=== PATIENT | female | born 2000 | race Hispanic/Latino ===

== ENCOUNTER 2022-12-06 10:43 | Day surgery (SDC) | payer OTHER, SELFPAY ==
[~2022-12-06] VITALS: Ht 162.6 cm; Wt 68.2 kg
[2022-12-06 12:16] LABS: BASO % 0.4 % (0.0-1.0); EOS # 0.2 10^3/uL (0.0-0.5); HEMATOCRIT 38.6 % (36.0-47.0); HEMOGLOBIN 12.3 g/dl (12.0-15.5); LYMPH % 20.1 % (24.0-44.0); MEAN CORPUSCULAR HEMOGLOBIN 26.7 pg (27.0-33.0); MEAN CORPUSCULAR HGB CONC 31.9 g/dl (32.0-36.5); MEAN CORPUSCULAR VOLUME 83.7 fl (80.0-96.0); MONO # 0.6 10^3/uL (0.0-0.8); NEUTROPHILS # 7.2 10^3/uL (1.5-8.5); PLATELET COUNT, AUTOMATED 365 10^3/uL (150-450); RED BLOOD COUNT 4.61 10^6/uL (4.00-5.40); WHITE BLOOD COUNT 10.2 10^3/uL (4.0-10.0)
[2022-12-06 12:40] LABS: BLOOD UREA NITROGEN 15 MG/DL (9-23); CALCIUM LEVEL 9.8 MG/DL (8.5-10.1); CARBON DIOXIDE LEVEL 27 MMOL/L (20-31); CHLORIDE LEVEL 103 MMOL/L (98-107); CREATININE FOR GFR 0.72 MG/DL (0.55-1.30); GLOMERULAR FILTRATION RATE > 60.0 (>60); GLUCOSE, FASTING 83 MG/DL (60-100); POTASSIUM SERUM 4.3 MMOL/L (3.5-5.1); SODIUM LEVEL 136 MMOL/L (136-145)
[2022-12-06 12:54] LABS: HCG, SERUM QUANTITATIVE 3355.3 MIU/ML (<4.2)
[2022-12-06] MEDS ORDERED: RHOGAM 300MCG (1500IU) INJ IM ONE (16:30)
[2022-12-06 16:35] LABS: GC DNA AMPLIFICATION NEGATIVE (NEGATIVE)
[2022-12-06] MEDS ORDERED: BUPIVACAINE HCL 0.25% 30ML VIAL As Ordered ONE (17:45)
[2022-12-06] MEDS ORDERED: propofoL 200 MG/20 ML VIAL As Ordered ONE (17:53)
[2022-12-06] MEDS ORDERED: LIDOCAINE 2% 100MG/5ML SDV (FOR ANES.) As Ordered ONE (17:53)
[2022-12-06] MEDS ORDERED: ROCURONIUM BROMIDE 50MG/5ML VIAL As Ordered ONE (17:53)
[2022-12-06] MEDS ORDERED: fentaNYL 250 MCG/5 ML INJECTION As Ordered ONE (17:55)
[2022-12-06] MEDS ORDERED: MIDAZOLAM INJ 2MG/2ML VIAL As Ordered ONE (17:56)
[2022-12-06] MEDS ORDERED: SCOPOLAMINE 1MG TRANSDERMAL PATCH TOP ONE (18:30)
[2022-12-06] MEDS ORDERED: ONDANSETRON 4MG 2ML VIAL As Ordered ONE (19:01)
[2022-12-06] MEDS ORDERED: ACETAMINOPHEN 1000MG 100ML IV BAG As Ordered ONE (19:01)
[2022-12-06] MEDS ORDERED: SUGAMMADEX SODIUM 500 MG/5 ML VIAL (BRIDION) As Ordered ONE (19:11)
[2022-12-06] MEDS ORDERED: KETOROLAC 60MG 2ML VIAL As Ordered ONE (19:30)
[2022-12-06] MEDS ORDERED: fentaNYL 100 MCG/2 ML INJECTION As Ordered ONE (19:47)
[2022-12-06] MEDS ORDERED: ONDANSETRON 4MG 2ML VIAL IV PRN (19:50)
[2022-12-06] MEDS ORDERED: oxyCODONE 5MG TAB PO PRN (19:50)
[2022-12-06] MEDS ORDERED: LR 1,000 ML IV SCH (19:50)
[2022-12-06] MEDS ORDERED: MORPHINE 2 MG/ML 1ML VIAL IV PRN (19:50)
[2022-12-06] MEDS ORDERED: fentaNYL 100 MCG/2 ML INJECTION IV PRN (19:50)
[2022-12-06 21:47] VITALS: BP 127/79
== END 2022-12-06 21:48 | disposition home or self-care (01) ==
LOC: M ED 10:43 → M SDC 17:22
PROVIDERS: ATTEND Obstetrics & Gynecology
DX: N83.11 Corpus luteum cyst of right ovary (principal); T83.39XA Other mechanical complication of intrauterine contraceptive device, initial encounter; Z88.0 Allergy status to penicillin; Z91.040 Latex allergy status
CPT/HCPCS: 49329; 76801; 76817; 80048; 81002; 84702; 85025; 86850; 86900; 86901; 87635; 87661; 87810; 87850; 93976; 96372; 99284; J0131; J1100; J1885; J2250; J2405; J2790; J3010; S0020

== ENCOUNTER → 2022-12-09 | Outpatient (CLI) | payer OTHER | LOC: M RAD 08:35 | PROVIDERS: ATTEND Obstetrics & Gynecology | DX: Z36.89 Encounter for other specified antenatal screening (principal) ==

== ENCOUNTER 2023-07-19 13:10 | Inpatient (IN) | payer OTHER ==
[2023-07-19] VITALS (7 sets, daily range): BP systolic 116–123; BP diastolic 60–71; TEMP 98.6; O2SAT 95–97
[~2023-07-19] VITALS: Ht 157.5 cm; Wt 89.2 kg
[2023-07-19] MEDS ORDERED: PRENTAB9 PO (14:00)
[2023-07-19] MEDS ORDERED: metroNIDAZOLE (FLAGYL) 500MG TABLET PO ONE (14:50)
[2023-07-19] MEDS ORDERED: HOME MED LIST COMPLETE! XX SCH (15:35)
[2023-07-19] MEDS ORDERED: METHYLERGONOVINE MALEATE 0.2MG/ML 1ML VIAL IM PRN (17:00)
[2023-07-19] MEDS ORDERED: LR 1,000 ML IV SCH (17:00)
[2023-07-19] MEDS ORDERED: BICITRA 30ML SOLN UDC PO ONE (17:00)
[2023-07-19] MEDS ORDERED: OXYTOCIN DRIP 30 UNITS in IV 1 EA IV PRN ×4 (17:00)
[2023-07-19] MEDS ORDERED: CLINDAMYCIN 900 MG in IV 1 EA IV ONE (17:00)
[2023-07-19] MEDS ORDERED: TRANEXAMIC ACID INJection 1,000 MG in NS 100 ML IV PRN (17:00)
[2023-07-19] MEDS ORDERED: CARBOPROST TROMETHAMINE 250 MCG/ML AMP IM PRN (17:00)
[2023-07-19] MEDS ORDERED: GENTAMICIN 400 MG in IV FLUID PLACE HOLDER 1 EA IV ONE (17:00)
[2023-07-19] MEDS ORDERED: ceFAZolin SOD 2 GM in IV 1 EA IV ONE (17:15)
[2023-07-19 17:38] LABS: HEMOGLOBIN 11.8 g/dl (12.0-15.5); MEAN CORPUSCULAR HEMOGLOBIN 27.8 pg (27.0-33.0); MEAN CORPUSCULAR HGB CONC 32.8 g/dl (32.0-36.5); MEAN CORPUSCULAR VOLUME 84.7 fl (80.0-96.0); PLATELET COUNT, AUTOMATED 196 10^3/uL (150-450); RED BLOOD COUNT 4.25 10^6/uL (4.00-5.40)
[2023-07-19] MEDS ORDERED: OXYTOCIN 30UNITS IN 0.9% NaCl 500ML IV BAG As Ordered ONE ×3 (18:13→20:09)
[2023-07-19] MEDS ORDERED: METOCLOPRAMIDE INJ 10MG/2ML VIAL As Ordered ONE (18:13)
[2023-07-19] MEDS ORDERED: ONDANSETRON 4MG 2ML VIAL As Ordered ONE (18:13)
[2023-07-19] MEDS ORDERED: PHENYLephrine 500MCG 5ML (100MCG/ML) SYRINGE As Ordered ONE (18:13)
[2023-07-19] MEDS ORDERED: KETOROLAC 60MG 2ML VIAL As Ordered ONE (18:13)
[2023-07-19] MEDS ORDERED: MORPHINE PRES-FREE INJ 10 MG/10 ML VIAL As Ordered ONE (18:13)
[2023-07-19] MEDS ORDERED: ACETAMINOPHEN 1000MG 100ML IV BAG As Ordered ONE (18:13)
[2023-07-19 18:21] LABS: CORD GAS ABE V -5.9; CORD GAS HCO3 V 21.2 MMOL/L; CORD GAS O2 SAT V 62.6 %; CORD GAS PCO2 V 46.9 mmHg; CORD GAS PH V 7.272 UNITS; CORD GAS PO2 V 27.5 mmHg; CORD GAS SBC V 18.8 MMOL/L; CORD GAS TCO2 V 22.6 MMOL/L
[2023-07-19 18:23] LABS: CORD GAS ABE A -5.1; CORD GAS HCO3 A 23.1 MMOL/L; CORD GAS O2 SAT A < 15.0 %; CORD GAS PCO2 A 55.6 mmHg; CORD GAS PH A 7.236 UNITS; CORD GAS TCO2 A 24.8 MMOL/L
[2023-07-19 18:30] LABS: CORD GAS ABE A -6.4; CORD GAS ABE V -4.5; CORD GAS HCO3 V 21.8 MMOL/L; CORD GAS O2 SAT A 52.2 %; CORD GAS O2 SAT V 68.3 %; CORD GAS PCO2 A 48.2 mmHg; CORD GAS PCO2 V 44.1 mmHg; CORD GAS PH A 7.256 UNITS; CORD GAS PH V 7.311 UNITS; CORD GAS PO2 A 22.2 mmHg; CORD GAS PO2 V 28.6 mmHg; CORD GAS SBC A 18.3 MMOL/L; CORD GAS SBC V 20.1 MMOL/L; CORD GAS TCO2 A 22.4 MMOL/L; CORD GAS TCO2 V 23.1 MMOL/L
[2023-07-19] MEDS ORDERED: RHOGAM 300MCG (1500IU) INJ IM SCH (18:50)
[2023-07-19] MEDS ORDERED: MOM 30ML SUSPENSION UDC PO PRN (18:50)
[2023-07-19] MEDS ORDERED: SIMETHICONE 80MG CHEW TAB PO PRN (18:50)
[2023-07-19] MEDS ORDERED: oxyCODONE 5MG TAB PO PRN ×2 (18:50)
[2023-07-19] MEDS ORDERED: OXYTOCIN DRIP 30 UNITS in IV 1 EA IV SCH ×4 (18:50)
[2023-07-19] MEDS: DOCUSATE SODIUM 100MG CAPSULE PO SCH (21:36)
[2023-07-19] MEDS: ACETAMINOPHEN 500 MG TAB PO PRN (21:42)
[2023-07-19] MEDS ORDERED: ONDANSETRON 4MG 2ML VIAL IV PRN (21:50)
[2023-07-20] MEDS: KETOROLAC 30 MG/ML 1ML VIAL IV SCH ×3 (00:47→12:58)
[2023-07-20 02:00] VITALS: BP 103/60; O2SAT 96
[2023-07-20] MEDS: ACETAMINOPHEN 500 MG TAB PO PRN ×2 (04:28→21:25)
[2023-07-20 06:00] VITALS: BP 103/55; O2SAT 96
[2023-07-20 07:39] LABS: HEMATOCRIT 32.9 % (36.0-47.0); HEMOGLOBIN 10.9 g/dl (12.0-15.5); MEAN CORPUSCULAR HEMOGLOBIN 27.7 pg (27.0-33.0); MEAN CORPUSCULAR HGB CONC 33.1 g/dl (32.0-36.5); MEAN CORPUSCULAR VOLUME 83.7 fl (80.0-96.0); PLATELET COUNT, AUTOMATED 169 10^3/uL (150-450); RED BLOOD COUNT 3.93 10^6/uL (4.00-5.40); WHITE BLOOD COUNT 16.8 10^3/uL (4.0-10.0)
[2023-07-20] MEDS: DOCUSATE SODIUM 100MG CAPSULE PO SCH ×2 (08:52→20:27)
[2023-07-20] MEDS: PRENATAL VITAMINS CHEWABLE TABLET PO SCH (08:52)
[2023-07-20] MEDS ORDERED: PRENATAL VITAMINS CHEWABLE TABLET PO SCH (09:00)
[2023-07-20 10:00] VITALS: BP 117/67; O2SAT 96
[2023-07-20 14:00] VITALS: BP 112/71; O2SAT 99
[2023-07-20 17:53] VITALS: BP 118/73; O2SAT 98
[2023-07-20] MEDS: IBUPROFEN 800 MG TAB PO SCH (20:28)
[2023-07-20 22:00] VITALS: BP 116/65; O2SAT 99
[2023-07-21 02:00] VITALS: BP 118/68; O2SAT 98
[2023-07-21] MEDS: IBUPROFEN 800 MG TAB PO SCH ×2 (05:22→13:30)
[2023-07-21 05:55] VITALS: BP 123/68; O2SAT 99
[2023-07-21] MEDS: DOCUSATE SODIUM 100MG CAPSULE PO SCH (07:54)
[2023-07-21] MEDS: PRENATAL VITAMINS CHEWABLE TABLET PO SCH (07:54)
[2023-07-21] MEDS: ACETAMINOPHEN 500 MG TAB PO PRN ×2 (07:55→17:39)
[2023-07-21] MEDS ORDERED: MEASLES,MUMPS,RUBELLA VACCINE INJ (MMR-II) SC.IMMUN ONE (09:00)
[2023-07-21 14:00] VITALS: BP 105/68; O2SAT 98
[2023-07-21 18:00] VITALS: BP 129/76; O2SAT 99
== END 2023-07-21 18:00 | disposition home or self-care (01) | DRG 785 ==
LOC: M LDO 13:10 → M LDI 16:51 → M OBS 20:53
PROVIDERS: ADMIT Advanced Practice Midwife; ATTEND Advanced Practice Midwife
PROC: 0UB70ZZ Excision of Bilateral Fallopian Tubes, Open Approach (ICD-10-PCS; 2023-07-19)
PROC: 10D00Z1 Extraction of Products of Conception, Low, Open Approach (ICD-10-PCS; principal; 2023-07-19 17:30)
DX: O60.14X0 Preterm labor third trimester with preterm delivery third trimester, not applicable or unspecified (principal); O99.824 Streptococcus B carrier state complicating childbirth; O30.043 Twin pregnancy, dichorionic/diamniotic, third trimester; O32.8XX1 Maternal care for other malpresentation of fetus, fetus 1; Z3A.36 36 weeks gestation of pregnancy; Z30.2 Encounter for sterilization; O36.0990 Maternal care for other rhesus isoimmunization, unspecified trimester, not applicable or unspecified; Z91.040 Latex allergy status; Z88.0 Allergy status to penicillin; Z37.2 Twins, both liveborn